=== PATIENT | male | born 1980 | race Caucasian/White ===

== ENCOUNTER 2017-06-17 15:24 | Emergency (ER) | payer OTHER ==
[~2017-06-17] VITALS: Ht 177.8 cm; Wt 88.7 kg
[2017-06-17 15:40] VITALS: Ht 177.8 cm; Wt 88.7 kg
--- NOTE | 2017-06-17 18:00 | EMERGENCY ROOM VISIT NOTE ---
History Report prepared by Brisa: Derik Farr Under the Supervision of: Dr. Junior Fernandes M.D. First contact with patient: 17:38 Chief Complaint: SYNCOPE Stated Complaint: SEIZURE EARLIER TODAY Nursing Triage Summary: Patient ambulatory to triage with an upright and steady gait, states "I had a coffee at 0700 today. I went for lunch around 1215. I was not feeling good. I went to the bathroom and my vision got a little blurry. I went back to the table and got nauseated. My friend said that I passed out and started shaking. I was feeling very hot and sweaty. My friend said I was passed out for maybe a minute. I have a mild headache." History of Present Illness The patient is a 36 year old [place] male with a no significant past medical history who presents to the Emergency Room with following a seizure/syncopal episode that occurred at 1215 this afternoon, 5.5 hours ago. The patient states that he went out to lunch with his friend this afternoon. He went to use the restroom when he first started to notice his vision intermittently becoming "black and blurry." He returned to his seat and continued to feel unusual. He suddenly got very nauseous and felt like he was going to throw up. His friend went to go get the food, and when he returned he found the patient had passed out and was shaking in the seat. The patient did not fall to the ground and did not hit his head at any time. The patient states that he gained consciousness very quickly following the episode. There was no period of confusion. He denies any associated chest pain or shortness of breath at this time. He has no significant medical problems, and no history of seizures/syncope. Source of History: patient Onset: 5.5 hours [employer] Position: eye (bilateral) Quality: other (Black/blurry vision) Timing: intermittent Associated Symptoms: + nausea, No vomiting Note: Patient lost consciousness Review of Systems See HPI for pertinent positives and negatives. A total of ten systems were reviewed and were otherwise negative. Past Medical & Surgical None significant stated. Family History Cancer Diabetes mellitus Social History Smoking Status: Never Smoker Drug Use: none Marital Status: single Housing Status: lives alone Occupation Status: employed Current/Historical Medications No Active Prescriptions or Reported Meds Allergies Coded Allergies: No Known Allergies (Unverified , 06/17/17) Physical Exam Vital Signs Date Time Temp Pulse Resp B/P (MAP) Pulse Ox O2 Delivery O2 Flow Rate FiO2 06/17/17 18:50 37.1 78 16 121/75 94 Room Air 06/17/17 17:40 87 18 115/85 97 Room Air 06/17/17 15:40 36.9 82 18 136/82 96 Room Air Physical Exam GENERAL: Wearing glasses, Awake, alert, well-appearing, NAD HENT: Normocephalic, atraumatic. EYES: Normal conjunctiva. Sclera non-icteric. NECK: Supple. No nuchal rigidity. FROM. RESPIRATORY: CTAB, no rhonchi, wheezing, crackles CARDIAC: RRR, no MRG ABDOMEN: Soft, NTND, BS+ MSK: No chest wall TTP, no LE edema NEURO: CN 2-12 intact, 5/5 upper and lower extremity strength, no dysmetria, no drift, good finger to nose, no sensory deficits. SKIN: No rash or jaundice noted. Medical Decision & Procedures ER Provider Diagnostic Interpretation: Radiology results as stated below per my review and radiologist interpretation: CHEST ONE VIEW PORTABLE CLINICAL HISTORY: EVALUATE WEAKNESS COMPARISON STUDY: No previous studies for comparison. FINDINGS: Lung volumes are mildly diminished. No pneumothorax or pleural effusion is noted. There is no evidence for pulmonary edema. Cardiac size is normal. Mediastinal contours are normal. There is no consolidation to suggest pneumonia. IMPRESSION: No acute cardiopulmonary findings. Electronically signed by: Brain Ortiz M.D. 06/17/2017 7:19 PM Dictated Date/Time: 06/17/2017 7:[address] NON[address]AST CT DOSE: 614.27 mGy.cm HISTORY: syncope TECHNIQUE: Multiaxial CT images of the head were performed without the use of intravenous contrast. Automated exposure control was utilized for this study. A dose lowering technique was utilized adhering to the principles of ALARA. Comparison: None. Findings: Mild mucosal thickening within the ethmoid air cells. The mastoid air cells are clear. The calvarium and skull base are intact. The ventricles and sulci are within normal limits. There is no mass, hematoma, midline shift, or acute infarct. Impression: No acute intracranial abnormality. Electronically signed by: Wyatt Vail M.D. 06/17/2017 7:06 PM Dictated Date/Time: 06/17/2017 6:59 PM Laboratory Results 06/17/17 18:12 Red Blood Count 5.17, Mean Corpuscular Volume 89.7, Mean Corpuscular Hemoglobin 30.9, Mean Corpuscular Hemoglobin Concent 34.5, Mean Platelet Volume 10.6, Neutrophils (%) (Auto) 64.7, Lymphocytes (%) (Auto) 25.2, Monocytes (%) (Auto) 6.9, Eosinophils (%) (Auto) 2.7, Basophils (%) (Auto) 0.3, Neutrophils # (Auto) 6.04, Lymphocytes # (Auto) 2.35, Monocytes # (Auto) 0.64, Eosinophils # (Auto) 0.25, Basophils # (Auto) 0.03 06/17/17 18:12 Test 06/17/17 18:12 White Blood Count 9.33 K/uL (4.8-10.8) Red Blood Count 5.17 M/uL (4.7-6.1) Hemoglobin 16.0 g/dL (14.0-18.0) Hematocrit 46.4 % (42-52) Mean Corpuscular Volume 89.7 fL (80-100) Mean Corpuscular Hemoglobin 30.9 pg (25-34) Mean Corpuscular Hemoglobin Concent 34.5 g/dl (32-36) Platelet Count 186 K/uL (130-400) Mean Platelet Volume 10.6 fL (7.4-10.4) Neutrophils (%) (Auto) 64.7 % Lymphocytes (%) (Auto) 25.2 % Monocytes (%) (Auto) 6.9 % Eosinophils (%) (Auto) 2.7 % Basophils (%) (Auto) 0.3 % Neutrophils # (Auto) 6.04 K/uL (1.4-6.5) Lymphocytes # (Auto) 2.35 K/uL (1.2-3.4) Monocytes # (Auto) 0.64 K/uL (0.11-0.59) Eosinophils # (Auto) 0.25 K/uL (0-0.5) Basophils # (Auto) 0.03 K/uL (0-0.2) RDW Standard Deviation 42.5 fL (36.4-46.3) RDW Coefficient of Variation 13.0 % (11.5-14.5) Immature Granulocyte % (Auto) 0.2 % Immature Granulocyte # (Auto) 0.02 K/uL (0.00-0.02) Prothrombin Time 10.5 SECONDS (9.0-12.0) Prothromb Time International Ratio 1.0 (0.9-1.1) Activated Partial Thromboplast Time 25.3 SECONDS (21.0-31.0) Partial Thromboplastin Ratio 1.0 Anion Gap 7.0 mmol/L (3-11) Est Creatinine Clear Calc Drug Dose 105.0 ml/min Estimated GFR () 101.5 Estimated GFR (Non- 87.6 BUN/Creatinine Ratio 15.5 (10-20) Calcium Level 9.0 mg/dl (8.5-10.1) Magnesium Level 2.3 mg/dl (1.8-2.4) Thyroid Stimulating Hormone (TSH) 1.690 uIu/ml (0.300-4.500) Laboratory results reviewed by me ECG Per My Interpretation Indication: syncope Rate (beats per minute): 70 Rhythm: normal sinus Findings: T-wave inversion (Lead 3, AvF), other (Normal axis, normal intervals. ) ED Course 1739: The patient was evaluated in room B10. A complete history and physical exam was performed. 1935: I reevaluated the patient. Discussed results and discharge instructions: he verbalized understanding and agreement. The patient is ready for discharge. Medical Decision The patient is a 36 year old [place] male with a no significant past medical history who presents to the Emergency Room with following a seizure/syncopal episode that occurred at 1215 this afternoon, 5.5 hours ago. Differential diagnosis: Etiologies such as vasovagal event, infection, hypoglycemia, electrolyte abnormalities, cardiac sources, intracerebral event, toxicologic, neurologic, as well as others were entertained. Patient was seen and evaluated at the bedside. Patient presented after he had a syncopal event that occurred while being seated. The patient did describe having some blurry vision as well as some lightheadedness. Patient reported that he was apparently shaking per his friend. The patient does state though that he was only out for approximately a minute and when he came to he was very aware awake and alert. Given this this does not sound like a postictal. Less likely seizure. Patient denies any blood thinning medications and no recent trauma. Patient did not fall or strike his head. He was seated. Patient denies any infectious symptoms. He denies any chest pain or shortness of breath. Patient did have blood work completed, EKG, chest x-ray, CT brain. Patient's EKG does have some subtle changes in the inferior leads. Patient denies any chest pains or shortness of breath. No clinical indication or concern for ACS. Patient was told of these findings and was told he should follow with the PCP. I did speak with nurse case manager who did give him materials to help follow- up. Patient CT brain negative. Chest x-ray was clear. Patient's other blood work was fairly unremarkable. Patient does not have an elevated white count. Patient's bicarb is normal. Kidney function also normal. Patient is not anemic. I do not believe the patient requires further evaluation or inpatient treatment at this time. Patient is again is very well-appearing has a nonfocal neurologic exam the patient is been able to ambulate and tolerate p.o. at the bedside. Patient was given strict follow-up, discharge, and return precautions. All questions were answered. Patient was deemed suitable for outpatient follow-up at this time. Patient agreed with the plan of care and was safely discharged home. Medication Reconcilliation Current Medication List: was personally reviewed by me Blood Pressure Screening Patient's blood pressure: Elevated blood pressure Impression Primary Impression: Syncope Scribe Attestation The scribe's documentation has been prepared under my direction and personally reviewed by me in its entirety. I confirm that the note above accurately reflects all work, treatment, procedures, and medical decision making performed by me. Departure Information Dispostion Home / Self-Care Prescriptions No Active Prescriptions or Reported Meds Referrals No Doctor, Assigned (PCP) Patient Instructions Fainting (Syncope) - [facility], My [facility], Syncope Causes Additional Instructions Please return to the emergency department if you have worsening or recurrent symptoms not amenable to at-home treatment. Please call for a follow-up appointment with her primary care physician. Please take your medications as prescribed. If you have other concerns and/or complaints please feel free to also call your primary care physician's office or return the ED for further evaluation, management, and treatment. Please follow-up with a primary care physician. Please utilize the materials you were given by the nurse case manager. You may take 600 mg Ibuprofen every 6 hours as needed for pain with food for no more than 2 consecutive days. You may take tylenol 1000 mg every 6 hours as needed for pain. You may take motrin and tylenol separately or at the same time. Take your medications as prescribed. You have been examined and treated today on an emergency basis only. This is not a substitute for, or an effort to provide, complete comprehensive medical care. It is impossible to recognize and treat all injuries or illnesses in a single emergency department visit. It is therefore important that you follow up closely with [facility], your PCP, and/or your specialist(s). Call as soon as possible for an appointment. Thank you for your time and consideration. I look forward to speaking with you again soon. Please don't hesitate to call us if you have any questions. Problem Qualifiers Primary Impression: Syncope Syncope type: unspecified Qualified Codes: R55 - Syncope and collapse
[2017-06-17 18:27] LABS: BASO % 0.3 %; BASO ABS # 0.03 K/uL (0-0.2); EOS % 2.7 %; EOS ABS # 0.25 K/uL (0-0.5); HEMATOCRIT 46.4 % (42-52); IG# 0.02 K/uL (0.00-0.02); LYMPH % 25.2 %; LYMPH ABS # 2.35 K/uL (1.2-3.4); MEAN CELL VOLUME 89.7 fL (80-100); MEAN CORPUSCULAR HEMOGLOBIN 30.9 pg (25-34); MEAN CORPUSCULAR HGB CONC 34.5 g/dl (32-36); MEAN PLATELET VOLUME 10.6 fL (7.4-10.4); MONO % 6.9 %; MONO ABS # 0.64 K/uL (0.11-0.59); NEUT % 64.7 %; NEUT ABS # 6.04 K/uL (1.4-6.5); PLATELET COUNT 186 K/uL (130-400); RED CELL DISTRIBUTION WIDTH SD 42.5 fL (36.4-46.3); WHITE BLOOD COUNT 9.33 K/uL (4.8-10.8)
[2017-06-17 18:38] LABS: CREATININE 1.07 mg/dl (0.60-1.40); POTASSIUM 3.9 mmol/L (3.5-5.1)
[2017-06-17 18:43] LABS: PTT PATIENT 25.3 SECONDS (21.0-31.0)
[2017-06-17 18:50] VITALS: TEMP 37.1
--- NOTE | 2017-06-17 19:08 | DIAGNOSTIC IMAGING REPORT ---
HEAD CT NONCONTRAST CT DOSE: 614.27 mGy.cm HISTORY: syncope TECHNIQUE: Multiaxial CT images of the head were performed without the use of intravenous contrast. Automated exposure control was utilized for this study. A dose lowering technique was utilized adhering to the principles of ALARA. Comparison: None. Findings: Mild mucosal thickening within the ethmoid air cells. The mastoid air cells are clear. The calvarium and skull base are intact. The ventricles and sulci are within normal limits. There is no mass, hematoma, midline shift, or acute infarct. Impression: No acute intracranial abnormality. Electronically signed by: Wyatt Vail M.D. 06/17/2017 7:06 PM Dictated Date/Time: 06/17/2017 6:59 PM
--- NOTE | 2017-06-17 19:21 | DIAGNOSTIC IMAGING REPORT ---
CHEST ONE VIEW PORTABLE CLINICAL HISTORY: EVALUATE WEAKNESS COMPARISON STUDY: No previous studies for comparison. FINDINGS: Lung volumes are mildly diminished. No pneumothorax or pleural effusion is noted. There is no evidence for pulmonary edema. Cardiac size is normal. Mediastinal contours are normal. There is no consolidation to suggest pneumonia. IMPRESSION: No acute cardiopulmonary findings. Electronically signed by: Brain Ortiz M.D. 06/17/2017 7:19 PM Dictated Date/Time: 06/17/2017 7:19 PM
[2017-06-17 19:37] VITALS: BP 130/73; PULSE 77; O2SAT 97
== END 2017-06-17 19:37 | disposition home or self-care (01) ==
LOC: C.EDB 15:27
DX: R55 Syncope and collapse (principal); H53.8 Other visual disturbances; R11.0 Nausea; R94.31 Abnormal electrocardiogram [ECG] [EKG]; Z83.3 Family history of diabetes mellitus